=== PATIENT | male | born 1980 | race Caucasian/White ===

== ENCOUNTER 2018-02-24 09:02 | Emergency (ER) | payer OTHER ==
[~2018-02-24] VITALS: Ht 175.3 cm; Wt 81.7 kg
[2018-02-24] MEDS ORDERED: CELEXA20 MG PO (09:10)
[2018-02-24] MEDS ORDERED: KEFLEX500 M1 PO (10:24)
[2018-02-24 10:56] VITALS: BP 128/78
== END 2018-02-24 10:56 | disposition home or self-care (01) ==
LOC: ER 09:02
DX: S01.411A Laceration without foreign body of right cheek and temporomandibular area, initial encounter (principal); W26.8XXA Contact with other sharp object(s), not elsewhere classified, initial encounter; Y93.89 Activity, other specified; Y92.89 Other specified places as the place of occurrence of the external cause; Y99.8 Other external cause status